=== PATIENT | male | born 1950 | race Caucasian/White ===

== ENCOUNTER 2017-03-03 09:17 | Emergency (ER) | payer MEDICARE, OTHER ==
--- NOTE | 2017-03-03 09:57 | UC ---
Throat Pain/Nasal Hussein HPI - HPI Summary HPI Summary: pt presents with c/o sore throat x3 days. Pt reports that throat is more tender upon waking. Denies known exposure to URI or strep throat. - History of Current Complaint Chief Complaint: UCRespiratory Stated Complaint: THROAT PAIN Time Seen by Provider: 03/03/17 09:34 Hx Obtained From: Patient Onset/Duration: Sudden Onset, Lasting Days - 3 days Severity: Moderate Cough: None Associated Signs & Symptoms: Positive: Dysphagia, Other - left ear ache - Allergies/Home Medications Allergies/Adverse Reactions: Allergies Allergy/AdvReac Type Severity Reaction Status Date / Time No Known Allergies Allergy Verified 03/03/17 09:30 PMH/Surg Hx/FS Hx/Imm Hx Previously Healthy: Yes - Surgical History Surgical History: Yes Surgery Procedure, Year, and Place: Tonsils - Family History Known Family History: Positive: Other - Positive [facility] for URI - Social History Alcohol Use: None Substance Use Type: None Smoking Status (MU): Never Smoked Tobacco - Immunization History Most Recent Influenza Vaccination: 2015 Most Recent Tetanus Shot: Unk Most Recent Pneumonia Vaccination: None Review of Systems Constitutional: Negative Skin: Negative Eyes: Negative ENT: Sore Throat, Ear Ache - left ear Respiratory: Negative Cardiovascular: Negative Gastrointestinal: Negative Genitourinary: Negative Motor: Negative Neurovascular: Negative Musculoskeletal: Negative Neurological: Negative Psychological: Negative All Other Systems Reviewed And Are Negative: Yes Physical Exam Triage Information Reviewed: Yes Appearance: Well-Appearing Vital Signs: Initial Vital Signs Temp 97.8 F 03/03/17 09:31 Pulse 64 03/03/17 09:31 Resp 18 03/03/17 09:31 BP 156/79 03/03/17 09:31 Pulse Ox 98 03/03/17 09:31 Vital Signs Reviewed: Yes Eye Exam: Normal ENT Exam: Other ENT: Positive: Pharyngeal erythema, TM bulging - left, TM red - left, Other: - PND Neck exam: Normal Respiratory Exam: Normal Cardiovascular Exam: Normal Musculoskeletal Exam: Normal Neurological Exam: Normal Psychological Exam: Normal Skin Exam: Normal Throat Pain/Nasal Course/Dx - Differential Dx/Diagnosis Differential Diagnosis/HQI/PQRI: Influenza, Otitis Media, Pharyngitis Provider Diagnoses: pharyngitis. left ear ache Discharge - Discharge Plan Condition: Stable Disposition: HOME Patient Education Materials: Pharyngitis (ED), Earache (ED) Referrals: [facility] [Outside] Non Staff,Doctor [Medical Doctor] - Additional Instructions: Please follow up with your PCP or return to clinic as needed.
== END 2017-03-03 10:26 | disposition home or self-care (01) ==
LOC: UCEAST 09:17
DX: J02.9 Acute pharyngitis, unspecified (principal); H92.02 Otalgia, left ear
CPT/HCPCS: 87651; 99201; G0463

== ENCOUNTER 2018-12-19 13:31 | Emergency (ER) | payer MEDICARE, BC ==
--- NOTE | 2018-12-19 14:59 | UC ---
Lower Extremity/Ankle HPI - HPI Summary HPI Summary: 68-year-old male comes in with a chief complaint of left ankle pain and swelling for several days. Pain is swelling is on the medial aspect of the left ankle. No known trauma. He did have abdominal surgery 8 days ago. No calf pain or knee pain or thigh pain. Pain is worse with ambulation and palpation. - History of Current Complaint Chief Complaint: UCLowerExtremity Stated Complaint: SWOLLEN ANKLE Time Seen by Provider: 12/19/18 14:43 Pain Intensity: 3 - Allergies/Home Medications Allergies/Adverse Reactions: Allergies Allergy/AdvReac Type Severity Reaction Status Date / Time No Known Allergies Allergy Verified 12/19/18 14:07 PMH/Surg Hx/FS Hx/Imm Hx Previously Healthy: Yes - Surgical History Surgical History: Yes Surgery Procedure, Year, and Place: Tonsils hernia repair - Family History Known Family History: Positive: Other - Positive [facility] for URI - Social History Alcohol Use: None Substance Use Type: None Smoking Status (MU): Never Smoked Tobacco - Immunization History Most Recent Influenza Vaccination: 2015 Most Recent Tetanus Shot: Unk Most Recent Pneumonia Vaccination: None Review of Systems All Other Systems Reviewed And Are Negative: Yes Constitutional: Positive: Negative Skin: Positive: Negative. Negative: Bruising Eyes: Positive: Negative ENT: Positive: Negative Respiratory: Positive: Negative Cardiovascular: Positive: Negative Gastrointestinal: Positive: Negative Motor: Positive: Negative Neurovascular: Positive: Negative Musculoskeletal: Positive: Other: - SEE HPI Neurological: Positive: Negative Psychological: Positive: Negative Is Patient Immunocompromised?: No Physical Exam Triage Information Reviewed: Yes Appearance: No Pain Distress, Well-Nourished, Ill-Appearing Vital Signs: Initial Vital Signs Temp 98 F 12/19/18 14:05 Pulse 69 12/19/18 14:05 Resp 16 12/19/18 14:05 BP 142/94 12/19/18 14:05 Pulse Ox 100 12/19/18 14:05 Vital Signs Reviewed: Yes Eye Exam: Normal Eyes: Positive: Conjunctiva Clear Neck exam: Normal Neck: Positive: Supple Respiratory: Positive: No respiratory distress Musculoskeletal: Positive: Other: - Left ankle has swelling on the medial aspect it's tender to palpation just posterior and below the medial malleolus. Normal pulses in the foot and ankle normal capillary refill no sensation deficit no ecchymosis. Neurological Exam: Normal Neurological: Positive: Alert, Muscle Tone Normal Psychological: Positive: Age Appropriate Behavior Skin Exam: Normal Lower Extremity Course/Dx - Course Course Of Treatment: Order Information: ANKLE LEFT 3+VWS. Accession Number: [id number]. CPT: 84710. HISTORY: PAIN/SWELLING MEDIAL LT ANKLE. COMPARISONS : None. VIEWS: 3 , Frontal, lateral, and oblique views of the left ankle. FINDINGS: BONE DENSITY: There is diffuse osteopenia. BONES: There is no displaced fracture. JOINTS: There is moderate osteoarthritis of the tibiotalar and fibulotalar articulations. ALIGNMENT: There is no dislocation. SOFT TISSUES: There is circumferential soft tissue swelling. OTHER FINDINGS: None. IMPRESSION: 1. OSTEOPENIA. 2. OSTEOARTHRITIS. 3. SOFT TISSUE SWELLING. 4. NO ACUTE OSSEOUS INJURY. IF SYMPTOMS PERSIST, RECOMMEND REPEAT IMAGING. . <Electronically signed by Omar Mattson MD in OV> 12/19/18 [id number]. We discussed the possibility of DVT however with no calf pain or swelling in the swelling being localized to the medial aspect of the ankle clinically at this time this is not a DVT. With the swelling being in the low medial aspect of the ankle without any known acute trauma most likely cause is early tarsal tunnel. However there is no neurologic her sensation deficits at this time. We discussed the x-rays and the overall plan is Mauricio wrap patient's going to be wearing shoes with arch supports he can ice it and use anti-inflammatories and follow-up with orthopedics or sports medicine if not completely improved. - Differential Dx/Diagnosis Provider Diagnosis: Left ankle sprain Discharge - Sign-Out/Discharge Documenting (check all that apply): Patient Departure All imaging exams completed and their final reports reviewed: Yes - Discharge Plan Condition: Stable Disposition: HOME Patient Education Materials: Ankle Sprain (ED) Referrals: Luh Cook MD [Primary Care Provider] - Additional Instructions: FOLLOW UP WITH ORTHOPEDICS IF NOT COMPLETELY IMPROVED. EARLY TARSAL TUNNEL SYNDROME MAY BE THE CAUSE OF YOUR ANKLE SWELLING. GET RECHECKED FOR ANY WORSENING OF YOUR CONDITION OR QUESTIONS OR CONCERNS. - Billing Disposition and Condition Condition: STABLE Disposition: Home
== END 2018-12-19 15:41 | disposition home or self-care (01) ==
LOC: UCEAST 13:31
DX: S93.402A Sprain of unspecified ligament of left ankle, initial encounter (principal); X58.XXXA Exposure to other specified factors, initial encounter; Y92.9 Unspecified place or not applicable; M85.872 Other specified disorders of bone density and structure, left ankle and foot; M19.072 Primary osteoarthritis, left ankle and foot
CPT/HCPCS: 99212; G0463